=== PATIENT | male | born 1960 | race Caucasian/White ===

== ENCOUNTER → 2021-06-28 | Outpatient (CLI) | payer OTHER ==
[~2021-06-28] MED LIST: ADVIL200 M3 PO; MAXIMUM DAILY1 EACH PO
[2021-06-28 11:02] LABS: HEMATOCRIT 46.8 % (42.0-52.0); HEMOGLOBIN 15.8 gm/dL (14.0-18.0); MCH 31.4 pg (26.0-34.0); MCHC 33.9 g/dL (28.0-37.0); MCV 92.7 fL (80.0-100.0); RBC 5.04 mil/uL (4.50-6.00); RDW 12.9 % (10.5-14.5); WBC 4.8 thou/uL (4.0-11.0)
[2021-06-28 11:05] LABS: URINE BILIRUBIN NEGATIVE (Negative); URINE BLOOD NEGATIVE (Negative); URINE CLARITY CLEAR; URINE COLOR YELLOW; URINE GLUCOSE-RANDOM* NEGATIVE (Negative); URINE KETONES NEGATIVE (Negative); URINE LEUKOCYTES-REFLEX NEGATIVE (Negative); URINE NITRITE-REFLEX NEGATIVE (Negative); URINE PROTEIN (DIPSTICK) NEGATIVE (Negative); URINE SPECIFIC GRAVITY 1.025 (1.005-1.035); URINE UROBILINOGEN 0.2 E.U./dl (0.2-1.0)
[2021-06-28 11:16] LABS: PROTIME 10.9 Seconds (10.5-12.1)
[2021-06-28 11:30] LABS: ALBUMIN 4.3 g/dL (3.4-5.0); CALCIUM 9.2 mg/dL (8.5-10.1); CREATININE 1.2 mg/dL (0.7-1.3); POTASSIUM 4.6 mmol/L (3.5-5.1)
== END ==
LOC: PAC 10:29
PROVIDERS: ATTEND Orthopaedic Surgery
DX: M16.11 Unilateral primary osteoarthritis, right hip (principal)

== ENCOUNTER → 2021-07-01 | Outpatient (CLI) | payer OTHER | END | disposition home or self-care (01) | LOC: LAB 09:58 | PROVIDERS: ATTEND Student in an Organized Health Care Education/Training Program | DX: Z01.818 Encounter for other preprocedural examination (principal); Z20.822 Contact with and (suspected) exposure to COVID-19 ==

== ENCOUNTER 2021-07-05 06:27 | Observation (INO) | payer OTHER ==
[~2021-07-05] VITALS: Ht 188 cm; Wt 105.7 kg
[2021-07-05 07:14] VITALS: BP 136/86
[2021-07-05 11:36] VITALS: BP 104/67
--- NOTE | 2021-07-05 12:41 | NUR ---
Pt transferred to unit from PACU. Pt a&ox4. A little drowsy. Easy to arouse. IVF infusing. Dressing c/d/i. Pain under control. Family at bedside. Will work with physical therapy in the afternoon. Call light within reach. Fall precautions in place. Will continue to monitor.
[2021-07-05 16:45] VITALS: BP 107/65
[2021-07-05 19:52] VITALS: BP 109/64
--- NOTE | 2021-07-06 01:13 | NUR ---
ASSESSED AT START OF SHIFT. PT RESTING IN BED. IV INTACT AND FLUIDS INFUSING. EVENING MEDS GIVEN AND PT YEIMY IT WELL. FALL PREC IN PLACE AND CALL LIGHT AT REACH. URINAL AT BEDSIDE. HYDROCODONE GIVEN FOR PAIN. WILL CONT TO MONITOR TILL EOS.
[2021-07-06 05:32] VITALS: BP 113/61
[2021-07-06 07:23] VITALS: BP 111/63
--- NOTE | 2021-07-06 09:35 | NUR ---
ASSUMED PT CARE THIS AM. PT IS ALERT & ORIENTED X4. PT HAS IV SITE ON R HAND SALINE LOCKED. PT USES URINAL. PT RATED PAIN 5/10 ON R HIP AND GIVEN PAIN MEDICATION PER PT REQUEST. PT IS ON ROOM AIR. PT HAS BILATERAL GUERRERO H[employer]ES KNEE HIGH, MANSI DRESSING, SCD AND ICE PACK. NO C/O OF NAUSEA AND VOMITING THIS AM. PT TOLERATED DIET AND MEDICATION WELL. WILL CONTINUE TO MONITOR PT. FOLLOW POC.
[2021-07-06 11:20] VITALS: BP 111/63
--- NOTE | 2021-07-06 11:21 | NUR ---
Chart reveiwed and case discussed with the care team. Pt is s/p rt thr yesterday. He did well with therapy and will be dcing home later today. He has a rwalker in place for home use. His pcp is Dr. Albino Gatica. He will be doing outpt therapy. He lives with his spouse and has good support. No cm interventions indicated.
--- NOTE | 2021-07-07 10:49 | O ---
[facility] [place] [address] OPERATIVE REPORT Name: MARKO STONER Room #: 434-P [facility] Claudia Weems#: [id number] Admission: 07/05/21 Attend Phys: Yuri Nagel MD Discharge: 07/06/21 Date of : 56 Report #: [id number] THIS REPORT FOR: cc: LALITHA WALTER Physician not on staff Yuri Nagel MD ~ DATE OF SERVICE: 07/05/2021 PREOPERATIVE DIAGNOSIS: Right hip osteoarthritis. POSTOPERATIVE DIAGNOSIS: Right hip osteoarthritis. PROCEDURE: Right total hip arthroplasty. SURGEON: Yuri Nagel MD COAGULATION OPERATOR: Stefania Yeager PA-C. INDICATION FOR COAGULATION OPERATOR: Throughout the case, extensive retraction and manipulation of the hip was required including dislocation and reduction. This was afforded to me by my cardiology physician assistant. ANESTHESIA: LMA. IMPLANTS: [employer] size 13 high offset Synergy press-fit stem, a size 58 R3 acetabular cup and a size 40+4 Oxinium head. ESTIMATED BLOOD LOSS: 200 mL COMPLICATIONS: None. SPECIMENS: None. CONDITION UPON LEAVING THE OR: Stable. INDICATIONS FOR PROCEDURE: The patient is a 60-year-old gentleman with severe right hip osteoarthritis. He had failed conservative measures for this and after discussion with him, he elected for right total hip arthroplasty. DESCRIPTION OF PROCEDURE: Risks, benefits, alternatives, complications were discussed in detail with the patient including but not limited to risk of anesthesia, risk of damage to nerves, arteries, blood vessels, risk for infection, bleeding, risk for continued hip pain, leg length discrepancy, instability and need for reoperation. Informed consent was obtained from the patient. Right hip was appropriately marked in the preoperative holding area. IV Ancef was given for preoperative antibiotics. He was brought to the [address] [address] OPERATIVE REPORT Name: MARKO STONER SEYMOUR Room #: 434-P KYLEIGH Weems#: [id number] Admission: 07/05/21 Attend Phys: Yuri Nagel MD Discharge: 07/06/21 Date of : 56 Report #: [id number] operating room and placed in the supine position on the operating room table. LMA anesthesia was induced without complication. He was then placed in the left lateral decubitus position with the right hip uppermost. Right hip and lower extremity were prepped and draped in normal sterile fashion. Timeout was performed properly identifying the patient and procedure as well as the instrumentation and implants. All in the operating room in agreement. Standard posterior approach to the hip was made with 10 blade through the skin. Dissection was taken down to the fascia with Bovie cautery and a Bates elevator was used to clean out the fascia. A fresh 10 blade was used to make a fascial incision. This was taken proximally and distally with curved Alvarez scissor. Charnley retractor was placed. Trochanteric bursa was taken down with Bovie cautery. Piriformis tendon was identified, tagged and taken down with Bovie. Short external rotators were also taken down with Bovie cautery. Capsulotomy was made and capsule ends were tagged for later repair. Hip was dislocated. There was extensive osteoarthritic change of the femoral head. Femoral neck cut was made 1 cm proximal to the lesser trochanter based on preoperative templating and the femoral head was removed. Deep acetabular retractors were placed. Labrum was removed sharply. Pulvinar was removed with Bovie cautery. Acetabulum was then sequentially reamed up to a size 58, at which point there was excellent bleeding cancellous bone. A size 57 trial cup was placed, found to have a good fit. A final size 58 R3 acetabular cup was placed and seated. One acetabular screw was placed for backup fixation and a polyethylene liner for a 40 head was placed. Attention was turned to the femur. This was reamed and broached up to a size 13, at which point the size 13 broach was stable, was trialed with a high offset neck and a 40+0 head. Hip was reduced, taken through range of motion, found to be somewhat unstable in an extreme internal rotation. Hip was dislocated and we trialled with a 40+4 head. Hip was reduced, taken through range of motion, found to be stable, found to have equal leg lengths. Hip was dislocated. The broach was removed. An Arthrex FiberTape cerclage was placed around the proximal femur for prophylactic fixation and a final size 13 high offset Synergy press-fit stem was placed and seated. This was trialed with a 40+4 head. Hip was reduced, taken through range of motion, found to be stable, found to have equal leg lengths. Hip was dislocated. Trial head was removed and a final size 40+4 Oxinium head was placed. Hip was reduced, taken through range of motion, found to be stable, found to have equal leg lengths. The wound was thoroughly irrigated with normal saline. A periarticular injection consisting of morphine, ropivacaine, epinephrine, Toradol was placed around the hip joint capsule. A gram of vancomycin was placed deep in the joint. The capsule and piriformis were repaired with 0 FiberWire. Fascia was closed with 0 Vicryl. Skin was closed with 2-0 Vicryl, 3-0 Monocryl. [address]erm[address] [address] OPERATIVE REPORT Name: MARKO STONER Room #: 434-P [facility] Claudia Weems#: [id number] Admission: 07/05/21 Attend Phys: Yuri Nagel MD Discharge: 07/06/21 Date of : 56 Report #: [id number] and a MANSI dressing was applied. The patient tolerated this procedure well and went to recovery room under care of anesthesia postoperatively. <ELECTRONICALLY SIGNED> By: Yuri Nagel MD 07/07/21 [id number] [id number] Yuri Nagel MD /nt
== END 2021-07-06 12:50 | disposition home or self-care (01) ==
LOC: OR → TBA 06:27 → OR 11:28 → 4S 11:31 → OR 11:31 → 4S 07-06 12:50
PROVIDERS: ADMIT Orthopaedic Surgery; ATTEND Orthopaedic Surgery
DX: M16.11 Unilateral primary osteoarthritis, right hip (principal); Z20.822 Contact with and (suspected) exposure to COVID-19; M51.36 Other intervertebral disc degeneration, lumbar region; M16.12 Unilateral primary osteoarthritis, left hip; G47.33 Obstructive sleep apnea (adult) (pediatric); Z79.82 Long term (current) use of aspirin; Z79.899 Other long term (current) drug therapy
CPT/HCPCS: 50010; 50101; 50382; 50414; 53000; 53078; 53368; 54118; 56524; 56527; 56528; 56530; 57095; 57103; 57978; 57979; 62110; 62900; 70005